=== PATIENT | male | born 1950 | race Caucasian/White ===

== ENCOUNTER 2018-10-31 17:06 | Emergency (ER) | payer OTHER ==
[~2018-10-31] VITALS: Ht 170.2 cm; Wt 81.6 kg
[~2018-10-31 17:06] MED LIST: GLUCOTROL5 MG/BOTTL; LOZOL2.5 MG; METFORMIN HCL500 MG
[2018-10-31] MEDS ORDERED: TOPROL XL100 M1 (17:19)
[2018-10-31] MEDS ORDERED: CARDURA XL4 MG (17:20)
[2018-10-31] MEDS ORDERED: LIPITOR40 MG (17:20)
[2018-10-31] MEDS ORDERED: LANTUS SOL100 UNIT/1 (17:20)
[2018-11-01] MEDS ORDERED: CIPRO500 MG PO (00:43)
[2018-11-01] MEDS ORDERED: KETO10TA2 PO (00:43)
[2018-11-01] MEDS ORDERED: INTESTINEX680 M1 PO (00:43)
[2018-11-01] MEDS ORDERED: PEPCID AC20 MG PO (00:43)
[2018-11-01] MEDS ORDERED: LEVSIN/SL0.125 MG SL (00:43)
[2018-11-01] MEDS ORDERED: METRONIDAZOLE500 MG PO (00:43)
== END 2018-11-01 03:05 ==
LOC: ER 17:06
DX: K57.92 Diverticulitis of intestine, part unspecified, without perforation or abscess without bleeding (principal)

== ENCOUNTER 2019-01-01 02:42 | Emergency (ER) | payer OTHER ==
[~2019-01-01] VITALS: Ht 160 cm; Wt 83.0 kg
[~2019-01-01 02:42] MED LIST changes: +CARDURA XL4 MG; +CIPRO500 MG PO; +INTESTINEX680 M1 PO; +KETO10TA2 PO; +LANTUS SOL100 UNIT/1; +LEVSIN/SL0.125 MG SL; +LIPITOR40 MG; +METRONIDAZOLE500 MG PO; +PEPCID AC20 MG PO; +TOPROL XL100 M1
[2019-01-01] MEDS ORDERED: CEFUROXIME500 MG PO (05:37)
[2019-01-01] MEDS ORDERED: BENADRYL25 MG PO (05:37)
== END 2019-01-01 05:40 | disposition home or self-care (01) ==
LOC: ER 02:42
DX: M79.645 Pain in left finger(s) (principal); R60.0 Localized edema; T63.411A Toxic effect of venom of centipedes and venomous millipedes, accidental (unintentional), initial encounter; Y92.89 Other specified places as the place of occurrence of the external cause

== ENCOUNTER 2019-09-10 09:42 | Emergency (ER) | payer OTHER ==
[~2019-09-10] VITALS: Ht 170.2 cm; Wt 82.1 kg
[~2019-09-10 09:42] MED LIST changes: +BENADRYL25 MG PO; +CEFUROXIME500 MG PO
[2019-09-10] MEDS ORDERED: CARDURA XL4 MG (09:54)
== END 2019-09-10 12:09 | disposition home or self-care (01) ==
LOC: ER 09:42
DX: K52.89 Other specified noninfective gastroenteritis and colitis (principal); E86.0 Dehydration

== ENCOUNTER 2020-10-26 18:28 | Emergency (ER) | payer OTHER ==
[~2020-10-26] VITALS: Ht 167.6 cm; Wt 81.6 kg
== END 2020-10-27 04:05 ==
LOC: ER 18:28
DX: R55 Syncope and collapse (principal)

== ENCOUNTER 2022-02-13 20:07 | Emergency (ER) | payer OTHER ==
[~2022-02-13] VITALS: Ht 170.2 cm; Wt 81.6 kg
[2022-02-13] MEDS ORDERED: AVALIDE 300-121 EACH (20:30)
[2022-02-13] MEDS ORDERED: DICLOFENAC SODI75 MG PO (22:05)
== END 2022-02-13 22:22 | disposition home or self-care (01) ==
LOC: ER 20:07
DX: M54.50 Low back pain, unspecified (principal); I10 Essential (primary) hypertension; E11.9 Type 2 diabetes mellitus without complications; Z79.84 Long term (current) use of oral hypoglycemic drugs

== ENCOUNTER 2022-03-06 18:08 | Emergency (ER) | payer OTHER ==
[~2022-03-06] VITALS: Ht 170.2 cm; Wt 81.6 kg
[~2022-03-06 18:08] MED LIST changes: +AVALIDE 300-121 EACH; +DICLOFENAC SODI75 MG PO
== END 2022-03-06 22:34 | disposition home or self-care (01) ==
LOC: ER 18:08
DX: M54.50 Low back pain, unspecified (principal); E11.9 Type 2 diabetes mellitus without complications; Z79.4 Long term (current) use of insulin; I10 Essential (primary) hypertension

== ENCOUNTER 2023-02-24 14:04 | Emergency (ER) | payer OTHER ==
[~2023-02-24] VITALS: Ht 170.2 cm; Wt 81.6 kg
[2023-02-24] MEDS ORDERED: FARXIGA10 MG PO (15:29)
[2023-02-24] MEDS ORDERED: NORVASC2.5 MG PO (15:30)
== END 2023-02-25 00:18 | disposition home or self-care (01) ==
LOC: ER 14:04
DX: I10 Essential (primary) hypertension (principal); R10.9 Unspecified abdominal pain; E11.9 Type 2 diabetes mellitus without complications; Z79.4 Long term (current) use of insulin; K57.32 Diverticulitis of large intestine without perforation or abscess without bleeding